=== PATIENT | male | born 1965 | race Hispanic/Latino ===

== ENCOUNTER 2018-07-09 12:58 | Inpatient (IN) | payer BC, SELFPAY ==
[~2018-07-09 12:58] MED LIST: ISOVUE-370 76%-LOCM 1 ML ONE
[2018-07-09] MEDS ORDERED: Lidocaine 2% PF 100 mg/5 ml Syringe ONE (13:02)
[2018-07-09] MEDS ORDERED: Adacel (T-DAP) 0.5 ML VIAL ONE (13:06)
[2018-07-09] MEDS ORDERED: manNITOL 20% 500 ML ONE (13:10)
[2018-07-09] MEDS ORDERED: Midazolam HCl 5 mg/ml Vial ONE (13:13)
[2018-07-09] MEDS ORDERED: CEFAZOLIN/Water 2 GM/20 ML SYRINGE ONE (13:18)
[2018-07-09 13:22] LABS: Lavender RECEIVED; Red RECEIVED
[2018-07-09 13:23] LABS: #Basophils 0.1 thou/uL (0.0-0.2); #Eosinphils 0.1 thou/uL (0.0-0.7); #Lymphocytes 2.4 thou/uL (1.20-3.40); #Monocytes 0.5 thou/uL (0.11-0.59); #Neutrophils 6.5 thou/uL (1.40-6.50); %Basophils 0.7 % (0.0-1.0); %Eosinophils 0.6 % (0.0-10.0); %Lymphocytes 25.2 % (21.0-51.0); %Monocytes 5.3 % (0.0-10.0); %Neutrophils 68.3 % (42.0-75.0); Hemoglobin 16.1 g/dL (14.0-18.0); INR-International Normal Ratio 1.1; Mean Corpuscular HGB CONC 35.3 g/dL (32.0-36.0); Mean Corpuscular Hemoglobin 30.5 pg (27.0-31.0); Mean Corpuscular Volume 86.3 fL (78.0-98.0); Mean Platelet Volume 8.5 fL (7.4-10.4); PTT 33.7 SEC (22.9-36.1); Platelet Count 106 thou/uL (130-400); Prothrombin Time 14.5 SEC (12.0-14.7); Red Blood Cell (RBC) Count 5.28 mill/uL (4.70-6.10); White Blood Cell (WBC) Count 9.5 thou/uL (4.8-10.8)
[2018-07-09 13:32] LABS: ALT (SGPT) 49 U/L (8-55); AST (SGOT) 41 U/L (5-34); Albumin 4.5 g/dL (3.5-5.0); Alkaline Phosphatase 60 U/L (40-150); Anion Gap 21 mmol/L (10-20); BUN (Urea Nitrogen) 12 mg/dL (8.4-25.7); Calc. Creatinine Clearance 0 mL/min (70-130); Carbon Dioxide 18 mmol/L (22-29); Chloride 103 mmol/L (98-107); Estimated GFR-MDRD 75; Globulin 3.3 g/dL (2.4-3.5); Glucose 294 mg/dL (70-105); Protein, Total 7.8 g/dL (6.0-8.3); Sodium 138 mmol/L (136-145)
[2018-07-09 13:34] LABS: PLT Morphology Comment Appears Decreased; RBC Morphology Normal
[2018-07-09] MEDS ORDERED: Atropine Sulfate 1 mg/10 ml Syringe ONE (13:42)
[2018-07-09] MEDS ORDERED: Hydrocortisone Sod Succ/PF 100 mg/2 ml Vial ONE (13:44)
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
[2018-07-09 14:18] LABS: Magnesium 2.3 mg/dL (1.6-2.6); Phosphorus 2.7 mg/dL (2.3-4.7)
[2018-07-09 14:23] LABS: Bilirubin Negative (Negative); Blood, Urine Moderate (Negative); Clarity CLEAR (Clear); Glucose, Urine (Dipstick) >=1000 mg/dL (Negative); Leukocyte Negative (Negative); Nitrite Negative (Negative); Protein, Urine (Dipstick) 300 mg/dL (Neg-Trace); Specific Gravity, Urine 1.028 (1.002-1.036); Urobilinogen 0.2 mg/dL (0.2-1.0); pH, Urine 6.5 (5.0-9.0)
[2018-07-09 14:24] LABS: Bacteria/HPF None Seen HPF (None Seen); Hyaline Casts/LPF 0-3 HYALINE CAST LPF (0-3 Hyaline); Pathc Cast-AUWi Flag 0.72 (0-2.49); Squamous Epithelial 0-3 HPF (0-3); WBC/HPF 0-3 HPF (0-3)
[2018-07-09 14:31] LABS: Actual Bicarbonate (HCO3a) 21.9 mEq/L (22-28); Base Excess (BEa) -6.6 mEq/L (-2.0 to +3.0); CO2 Tension 56.1 mmHg (35.0-45.0); pH, Arterial 7.21 (7.35-7.45)
[2018-07-09 14:32] LABS: Analyzer IN Cardio ER; Calcium, Ionized 1.1 mmol/L (1.12-1.30); Carboxyhemoglobin (COHb) 0.6 gm% (0.0-3.0); Hemoglobin (Hb) 14.2 g/dL (14.0-18.0); Potassium - ABG Lab 3.8 mmol/L (3.70-5.30)
[2018-07-09 14:33] LABS: ALV-art Gradient 591.875 (0-20); Puncture Site RR
--- NOTE | 2018-07-09 14:39 | RAD ---
PORTABLE CHEST 1 VIEW: Date: 07/09/18 Time: 1407 hours HISTORY: Respiratory failure. FINDINGS/IMPRESSION: Comparison made with exam of 12/27/13. There is an endotracheal tube with tip just above the level of the clavicular heads. A nasogastric tu be can be traced into the stomach. There is a left subclavian central line with tip in the projection of the SVC. The heart size is borderline. No lobar consolidation, pneumothoraces, or large effusions are seen. There is no evidence of guillermo pulmonary edema. POS: [facility]
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
[2018-07-09] MEDS ORDERED: Sodium Chloride 3% 500 ML IVPB SCH (14:45)
[2018-07-09] MEDS ORDERED: Dextrose 50% Abboject 50 ML SYRINGE SLOW IVP PRN ×2 (15:28→19:49)
[2018-07-09] MEDS ORDERED: Ondansetron HCl/PF 4 MG/2 ML Vial IVP PRN (15:28)
[2018-07-09] MEDS ORDERED: Dextrose 5% in Water 1,000 ML IV PRN ×2 (15:28→19:49)
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
[2018-07-09 15:41] LABS: #Basophils 0.2 thou/uL (0.0-0.2); #Lymphocytes 0.4 thou/uL (1.20-3.40); #Monocytes 0.6 thou/uL (0.11-0.59); %Basophils 1.8 % (0.0-1.0); %Eosinophils 0.2 % (0.0-10.0); %Lymphocytes 3.4 % (21.0-51.0); %Monocytes 5.2 % (0.0-10.0); %Neutrophils 89.4 % (42.0-75.0); Mean Corpuscular HGB CONC 34.9 g/dL (32.0-36.0); Mean Corpuscular Hemoglobin 30.5 pg (27.0-31.0); Mean Corpuscular Volume 87.5 fL (78.0-98.0); Platelet Count 115 thou/uL (130-400); Red Blood Cell (RBC) Count 4.57 mill/uL (4.70-6.10); White Blood Cell (WBC) Count 12.3 thou/uL (4.8-10.8)
[2018-07-09 15:48] LABS: INR-International Normal Ratio 1.8; Prothrombin Time 21.3 SEC (12.0-14.7)
[2018-07-09 15:49] LABS: PTT 53.3 SEC (22.9-36.1)
[2018-07-09 15:55] LABS: Fibrinogen 60 mg/dL (253-463)
[2018-07-09 16:29] LABS: Anion Gap 17 mmol/L (10-20); BUN (Urea Nitrogen) 14 mg/dL (8.4-25.7); Calc. Creatinine Clearance 0 mL/min (70-130); Carbon Dioxide 18 mmol/L (22-29); Chloride 102 mmol/L (98-107); Estimated GFR-MDRD 58; Glucose 378 mg/dL (70-105); Potassium 4.4 mmol/L (3.5-5.1); Sodium 133 mmol/L (136-145)
[2018-07-09] MEDS ORDERED: SODIUM CHLORIDE 0.9% IVPB SCH ×2 (16:45→17:00)
[2018-07-09] MEDS ORDERED: METHYLPREDNISOLONE SOD SUCC IVPB SCH (16:45)
[2018-07-09] MEDS ORDERED: LEVOTHYROXINE SODIUM IVPB SCH (17:00)
[2018-07-09] MEDS ORDERED: NPH, Human Insulin Isophane 300 UNIT/3 ML VIAL FS SCH (17:00)
[2018-07-09] MEDS ORDERED: ADMIXTURE FEE IVPB SCH (17:00)
[2018-07-09] MEDS ORDERED: Levothyroxine 100 MCG SDV SLOW IVP SCH (17:00)
[2018-07-09 17:04] VITALS: BMI 32.2
[2018-07-09] MEDS: Sodium Chloride 0.9% 1,000 ML IV SCH (17:25)
[2018-07-09] MEDS ORDERED: Insulin Regular 300 UNITS/3 ML VIAL IVP SCH (17:30)
[2018-07-09] MEDS ORDERED: EPINEPHrine 1 MG/10 ML Abboject SYRINGE ONE (17:44)
[2018-07-09 18:20] LABS: Lactic Acid 2.2 mmol/L (0.5-2.2)
[2018-07-09] MEDS ORDERED: HumaLOG 300 UNITS/3 ML VIAL SC PRN (19:49)
[2018-07-09] MEDS ORDERED: Norepinephrine 8 MG/0.9% NS 250 ML IVPB SCH (20:00)
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
[2018-07-09] MEDS: CEFAZOLIN 1 GM in Sodium Chloride 0.9% 100 ML IVPB SCH (21:31)
[2018-07-09] MEDS: Famotidine/PF 20 mg/2ml Vial SLOW IVP SCH (21:31)
[2018-07-09] MEDS: Acetaminophen 1,000 MG in Premix Bag 1 BAG IVPB SCH (21:41)
[2018-07-09 22:56] LABS: Sodium 150 mmol/L (136-145)
[2018-07-09 23:02] LABS: Osmolality, Serum 340 mOsm/kg (280-295)
[2018-07-10] MEDS: Insulin Regular 300 UNITS/3 ML VIAL SC PRN ×2 (00:02→03:56)
[2018-07-10] MEDS: Sodium Chloride 0.9% 1,000 ML IV SCH (02:01)
[2018-07-10 04:33] LABS: #Lymphocytes 0.9 thou/uL (1.20-3.40); #Monocytes 0.2 thou/uL (0.11-0.59); #Neutrophils 12.3 thou/uL (1.40-6.50); %Eosinophils 0.1 % (0.0-10.0); %Lymphocytes 6.8 % (21.0-51.0); %Monocytes 1.5 % (0.0-10.0); %Neutrophils 91.6 % (42.0-75.0); Hemoglobin 13.9 g/dL (14.0-18.0); Mean Corpuscular HGB CONC 34.5 g/dL (32.0-36.0); Mean Corpuscular Hemoglobin 30.2 pg (27.0-31.0); Mean Corpuscular Volume 87.6 fL (78.0-98.0); Mean Platelet Volume 8.6 fL (7.4-10.4); Platelet Count 110 thou/uL (130-400); RBC Distribution Width 13.6 % (11.5-14.5); Red Blood Cell (RBC) Count 4.59 mill/uL (4.70-6.10); White Blood Cell (WBC) Count 13.4 thou/uL (4.8-10.8)
[2018-07-10 04:46] LABS: Anion Gap 20 mmol/L (10-20); BUN (Urea Nitrogen) 23 mg/dL (8.4-25.7); Calc. Creatinine Clearance 76 mL/min (70-130); Calcium 9.2 mg/dL (7.8-10.44); Carbon Dioxide 15 mmol/L (22-29); Chloride 121 mmol/L (98-107); Estimated GFR-MDRD 42; Glucose 439 mg/dL (70-105); Magnesium 2.8 mg/dL (1.6-2.6); Phosphorus 1.7 mg/dL (2.3-4.7); Sodium 152 mmol/L (136-145)
[2018-07-10] MEDS: Acetaminophen 1,000 MG in Premix Bag 1 BAG IVPB SCH (05:54)
[2018-07-10] MEDS: CEFAZOLIN 1 GM in Sodium Chloride 0.9% 100 ML IVPB SCH (05:54)
[2018-07-10] MEDS ORDERED: Potassium Phosphate 30 MMOL in Sodium Chloride 0.9% 500 ML IVPB SCH (06:00)
[2018-07-10 08:20] VITALS: TEMP 96.1
[2018-07-10] MEDS ORDERED: Sodium Chloride 0.45% 1,000 ML IV SCH (08:45)
[2018-07-10 09:00] LABS: CO2 Tension 27.6 mmHg (35.0-45.0); pH, Arterial 7.31 (7.35-7.45)
[2018-07-10 09:01] LABS: Actual Bicarbonate (HCO3a) 13.7 mEq/L (22-28); Base Excess (BEa) -10.9 mEq/L (-2.0 to +3.0); Carboxyhemoglobin (COHb) 0.4 gm% (0.0-3.0); Hemoglobin (Hb) 13.6 g/dL (14.0-18.0); O2 Tension (PaO2) 506.9 mmHg (80.0-100.0)
[2018-07-10 09:02] LABS: Calcium, Ionized 1.3 mmol/L (1.12-1.30); Puncture Site RRA
[2018-07-10] MEDS: Famotidine/PF 20 mg/2ml Vial SLOW IVP SCH (09:18)
[2018-07-10 09:56] LABS: ALT (SGPT) 49 U/L (8-55); AST (SGOT) 53 U/L (5-34); Albumin 3.8 g/dL (3.5-5.0); Alkaline Phosphatase 48 U/L (40-150); Anion Gap 17 mmol/L (10-20); BUN (Urea Nitrogen) 26 mg/dL (8.4-25.7); Bilirubin, Total 0.7 mg/dL (0.2-1.2); Calc. Creatinine Clearance 81 mL/min (70-130); Calcium 9.1 mg/dL (7.8-10.44); Carbon Dioxide 15 mmol/L (22-29); Chloride 125 mmol/L (98-107); Estimated GFR-MDRD 45; Globulin 2.8 g/dL (2.4-3.5); Glucose 377 mg/dL (70-105); Potassium 3.2 mmol/L (3.5-5.1); Protein, Total 6.6 g/dL (6.0-8.3); Sodium 154 mmol/L (136-145)
--- NOTE | 2018-07-10 10:27 | RAD ---
SEMIUPRIGHT PORTABLE CHEST: HISTORY: A 53-year-old male with a history of respiratory insufficiency. FINDINGS: Tracheostomy tube, NG tube, and left subclavian catheters are in place. Patchy increased linear saúl ings are noted in the infrahilar regions bilaterally, probably representing some subsegmental atelect asis. The upper lung zones appear clear. Heart size is within normal limits. IMPRESSION: Bibasilar, mostly linear and parenchymal changes, evidence for subsegmental atelectasis. No signific ant other new process. Continued short-term followup for clearing or stability. POS: [facility]
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
[2018-07-10 15:47] VITALS: BP 129/72
[2018-07-10 17:48] LABS: Actual Bicarbonate (HCO3a) 18.6 mEq/L (22-28); Base Excess (BEa) -4.3 mEq/L (-2.0 to +3.0); CO2 Tension 28.5 mmHg (35.0-45.0); O2 Tension (PaO2) 473.1 mmHg (80.0-100.0); pH, Arterial 7.43 (7.35-7.45)
[2018-07-10 17:49] LABS: Carboxyhemoglobin (COHb) 0.3 gm% (0.0-3.0)
[2018-07-10 17:50] LABS: ALV-art Gradient 204.275 (0-20); Calcium, Ionized 1.2 mmol/L (1.12-1.30); Potassium - ABG Lab 3.9 mmol/L (3.70-5.30); Puncture Site LBRACH
[2018-07-10] MEDS ORDERED: CEFAZOLIN 1 GM in Sodium Chloride 0.9% 100 ML IVPB SCH (22:00)
== END 2018-07-10 14:00 | disposition expired | DRG 4 ==
LOC: ERS 12:58 → EDBD 12:58 → CCU 15:07
PROVIDERS: ADMIT Surgery; ATTEND Surgery
PROC: 0B113F4 Bypass Trachea to Cutaneous with Tracheostomy Device, Percutaneous Approach (ICD-10-PCS; principal; 2018-07-09)
PROC: 5A1935Z Respiratory Ventilation, Less than 24 Consecutive Hours (ICD-10-PCS; 2018-07-09)
PROC: 02HV33Z Insertion of Infusion Device into Superior Vena Cava, Percutaneous Approach (ICD-10-PCS; 2018-07-09)
PROC: 5A2204Z Restoration of Cardiac Rhythm, Single (ICD-10-PCS; 2018-07-09)
PROC: 30233K1 Transfusion of Nonautologous Frozen Plasma into Peripheral Vein, Percutaneous Approach (ICD-10-PCS; 2018-07-09)
PROC: 30233R1 Transfusion of Nonautologous Platelets into Peripheral Vein, Percutaneous Approach (ICD-10-PCS; 2018-07-09)
PROC: 30233N1 Transfusion of Nonautologous Red Blood Cells into Peripheral Vein, Percutaneous Approach (ICD-10-PCS; 2018-07-09)
PROC: 30233M1 Transfusion of Nonautologous Plasma Cryoprecipitate into Peripheral Vein, Percutaneous Approach (ICD-10-PCS; 2018-07-09)
DX: G93.5 Compression of brain; J96.00 Acute respiratory failure, unspecified whether with hypoxia or hypercapnia; D65 Disseminated intravascular coagulation [defibrination syndrome]; I47.2 Ventricular tachycardia; E23.2 Diabetes insipidus; E87.2 Acidosis; E66.01 Morbid (severe) obesity due to excess calories; Z68.32 Body mass index [BMI] 32.0-32.9, adult; E83.51 Hypocalcemia
CPT/HCPCS: 31500; 36416; 36430; 70450; 70496; 71045; 72125; 78610; 80048; 80053; 80307; 81003; 81015; 82150; 82805; 83605; 83690; 83735; 83930; 84100; 85025; 85384; 85610; 85730; 86850; 86900; 86901; 90715; 94002; 94003; 94640; A9521; G0390; J0131; J0171; J0461; J0690; J1720; J1815; J2001; J2250; J2597; J2930; J7050; J7131; J7620; J7799; P9012; P9016; P9035; P9048; S0028

== ENCOUNTER 2018-07-10 13:09 | Day surgery (SDC) | payer OTHER ==
[2018-07-10] MEDS ORDERED: ADMIXTURE FEE IVPB SCH (15:00)
[2018-07-10] MEDS ORDERED: SODIUM CHLORIDE 0.9% IVPB SCH (15:00)
[2018-07-10] MEDS ORDERED: Norepinephrine 8 MG/0.9% NS 250 ML IVPB SCH (15:00)
[2018-07-10] MEDS ORDERED: LEVOTHYROXINE SODIUM IVPB SCH (15:00)
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
[2018-07-10 16:44] LABS: #Lymphocytes 1.3 thou/uL (1.20-3.40); #Monocytes 1.1 thou/uL (0.11-0.59); %Basophils 0.1 % (0.0-1.0); %Lymphocytes 7.2 % (21.0-51.0); %Monocytes 6.1 % (0.0-10.0); %Neutrophils 86.5 % (42.0-75.0); Hemoglobin 13.1 g/dL (14.0-18.0); Mean Corpuscular HGB CONC 34.8 g/dL (32.0-36.0); Mean Corpuscular Hemoglobin 30.7 pg (27.0-31.0); Mean Corpuscular Volume 88.3 fL (78.0-98.0); Mean Platelet Volume 8.3 fL (7.4-10.4); Platelet Count 110 thou/uL (130-400); RBC Distribution Width 13.6 % (11.5-14.5); Red Blood Cell (RBC) Count 4.28 mill/uL (4.70-6.10); White Blood Cell (WBC) Count 17.4 thou/uL (4.8-10.8)
[2018-07-10 16:47] LABS: INR-International Normal Ratio 1.2; PTT 28.8 SEC (22.9-36.1); Prothrombin Time 15.6 SEC (12.0-14.7)
[2018-07-10] MEDS: Sodium Chloride 0.45% 1,000 ML IV SCH (16:50)
[2018-07-10] MEDS: Phytonadione 10 MG/ML AMP SLOW IVP SCH ×2 (16:51→19:55)
[2018-07-10] MEDS: Insulin Regular 100 units/100 ml in NS IVPB SCH (16:51)
[2018-07-10 16:55] LABS: Bilirubin Negative (Negative); Blood, Urine Moderate (Negative); Clarity CLEAR (Clear); Glucose, Urine (Dipstick) 500 mg/dL (Negative); Leukocyte Negative (Negative); Nitrite Negative (Negative); Protein, Urine (Dipstick) Trace mg/dL (Neg-Trace); Specific Gravity, Urine 1.026 (1.002-1.036); Urobilinogen 0.2 mg/dL (0.2-1.0); pH, Urine 6.5 (5.0-9.0)
[2018-07-10 16:58] LABS: Bacteria/HPF None Seen HPF (None Seen); Hyaline Casts/LPF 0-3 HYALINE CAST LPF (0-3 Hyaline); Pathc Cast-AUWi Flag 0.43 (0-2.49); RBC/HPF 0-3 HPF (0-3); Squamous Epithelial 0-3 HPF (0-3); WBC/HPF 0-3 HPF (0-3)
--- NOTE | 2018-07-10 17:02 | RAD ---
CHEST ONE VIEW: History: Respiratory insufficiency. Comparison: 07-10-18 at 8:52 a.m. FINDINGS: There is evidence of an endotracheal and nasogastric tube. There is opacification of the right lower lobe. There is no pneumothorax or osseous abnormality. IMPRESSION: No significant interval change. POS: [facility]
[2018-07-10 17:39] LABS: ALT (SGPT) 45 U/L (8-55); AST (SGOT) 54 U/L (5-34); Albumin 3.7 g/dL (3.5-5.0); Alcohol Less than 10 mg/dL (Less than 10); Alkaline Phosphatase 42 U/L (40-150); Anion Gap 11 mmol/L (10-20); BUN (Urea Nitrogen) 23 mg/dL (8.4-25.7); Bilirubin, Direct 0.3 mg/dL (0.1-0.3); Bilirubin, Total 0.8 mg/dL (0.2-1.2); Calc. Creatinine Clearance 0 mL/min (70-130); Calcium 8.8 mg/dL (7.8-10.44); Carbon Dioxide 21 mmol/L (22-29); Chloride 127 mmol/L (98-107); Estimated GFR-MDRD 65; Gamma GT (GGT) 53 U/L (12-64); Globulin 2.4 g/dL (2.4-3.5); Glucose 120 mg/dL (70-105); LDH 361 U/L (125-220); Lipase 16 U/L (8-78); Magnesium 2.7 mg/dL (1.6-2.6); Phosphorus 1.3 mg/dL (2.3-4.7); Potassium 3.4 mmol/L (3.5-5.1); Protein, Total 6.1 g/dL (6.0-8.3); Sodium 156 mmol/L (136-145)
[2018-07-10 18:25] LABS: Hemoglobin A1c 9.4 % (4.0-6.0)
[2018-07-10] MEDS ORDERED: Albumin 5% 500 ML ONE (19:19)
[2018-07-10] MEDS ORDERED: Phytonadione 10 MG/ML AMP SLOW IVP SCH (20:00)
[2018-07-10] MEDS: CEFAZOLIN 1 GM in Sodium Chloride 0.9% 100 ML IVPB SCH (21:44)
[2018-07-10 22:53] LABS: #Monocytes 0.8 thou/uL (0.11-0.59); %Basophils 0.1 % (0.0-1.0); %Lymphocytes 7.5 % (21.0-51.0); %Monocytes 5.6 % (0.0-10.0); %Neutrophils 86.8 % (42.0-75.0); Hemoglobin 10.9 g/dL (14.0-18.0); Mean Corpuscular HGB CONC 35.2 g/dL (32.0-36.0); Mean Corpuscular Hemoglobin 31.1 pg (27.0-31.0); Mean Corpuscular Volume 88.6 fL (78.0-98.0); Mean Platelet Volume 8.1 fL (7.4-10.4); Platelet Count 72 thou/uL (130-400); RBC Distribution Width 13.5 % (11.5-14.5); Red Blood Cell (RBC) Count 3.51 mill/uL (4.70-6.10); White Blood Cell (WBC) Count 13.8 thou/uL (4.8-10.8)
[2018-07-10 22:58] LABS: INR-International Normal Ratio 1.3; PTT 28.7 SEC (22.9-36.1); Prothrombin Time 16.3 SEC (12.0-14.7)
[2018-07-10] MEDS ORDERED: Potassium Phosphate 45 MMOL in Sodium Chloride 0.9% 250 ML 250 ML IVPB SCH (23:00)
[2018-07-10 23:10] LABS: Actual Bicarbonate (HCO3a) 20.9 mEq/L (22-28); Base Excess (BEa) -2.3 mEq/L (-2.0 to +3.0); Carboxyhemoglobin (COHb) 0.3 gm% (0.0-3.0); O2 Tension (PaO2) 388.2 mmHg (80.0-100.0); pH, Arterial 7.45 (7.35-7.45)
[2018-07-10 23:11] LABS: Analyzer IN Cardio ER; Calcium, Ionized 1.2 mmol/L (1.12-1.30); Potassium - ABG Lab 3.6 mmol/L (3.70-5.30); Puncture Site LINE
[2018-07-10 23:16] LABS: ALT (SGPT) 35 U/L (8-55); AST (SGOT) 47 U/L (5-34); Albumin 3.7 g/dL (3.5-5.0); Alkaline Phosphatase 38 U/L (40-150); Anion Gap 9 mmol/L (10-20); BUN (Urea Nitrogen) 20 mg/dL (8.4-25.7); Bilirubin, Total 0.7 mg/dL (0.2-1.2); Calc. Creatinine Clearance 0 mL/min (70-130); Calcium 8.3 mg/dL (7.8-10.44); Carbon Dioxide 21 mmol/L (22-29); Chloride 132 mmol/L (98-107); Estimated GFR-MDRD 79; Globulin 2.2 g/dL (2.4-3.5); Glucose 122 mg/dL (70-105); Magnesium 2.6 mg/dL (1.6-2.6); Phosphorus 1.6 mg/dL (2.3-4.7); Potassium 3.2 mmol/L (3.5-5.1); Protein, Total 5.9 g/dL (6.0-8.3); Sodium 159 mmol/L (136-145)
[2018-07-10] MEDS ORDERED: Vasopressin 20 UNIT in Sodium Chloride 0.9% 250 ML 250 ML IV SCH (23:30)
[2018-07-10] MEDS ORDERED: Albumin 25% 25 GM/100 ML BOT IVPB SCH (23:30)
[2018-07-11] MEDS: Levothyroxine Sodium 400 MCG in Sodium Chloride 0.9% 100 ML IVPB SCH ×3 (00:34→17:51)
[2018-07-11] MEDS: Sodium Chloride 0.45% 1,000 ML IV SCH ×2 (01:41→12:41)
[2018-07-11] MEDS: Insulin Regular 100 units/100 ml in NS IVPB SCH (03:09)
[2018-07-11 04:08] LABS: Actual Bicarbonate (HCO3a) 21.7 mEq/L (22-28); Base Excess (BEa) -1.7 mEq/L (-2.0 to +3.0); CO2 Tension 32.2 mmHg (35.0-45.0); Carboxyhemoglobin (COHb) 0.3 gm% (0.0-3.0); Hemoglobin (Hb) 10.8 g/dL (14.0-18.0); O2 Tension (PaO2) 491.3 mmHg (80.0-100.0); Potassium - ABG Lab 3.8 mmol/L (3.70-5.30); pH, Arterial 7.45 (7.35-7.45)
[2018-07-11 04:09] LABS: Calcium, Ionized 1.2 mmol/L (1.12-1.30); Puncture Site LINE
[2018-07-11 04:45] LABS: Bilirubin Negative (Negative); Blood, Urine Large (Negative); Clarity CLEAR (Clear); Glucose, Urine (Dipstick) >=1000 mg/dL (Negative); Leukocyte Negative (Negative); Nitrite Negative (Negative); Protein, Urine (Dipstick) 100 mg/dL (Neg-Trace); Specific Gravity, Urine 1.033 (1.002-1.036)
[2018-07-11 04:48] LABS: Bacteria/HPF None Seen HPF (None Seen); Hyaline Casts/LPF 0-3 HYALINE CAST LPF (0-3 Hyaline); Pathc Cast-AUWi Flag 0.14 (0-2.49); RBC/HPF 0-3 HPF (0-3); Squamous Epithelial 0-3 HPF (0-3); WBC/HPF 0-3 HPF (0-3)
[2018-07-11] MEDS: CEFAZOLIN 1 GM in Sodium Chloride 0.9% 100 ML IVPB SCH ×2 (05:20→14:07)
[2018-07-11 05:27] LABS: Oval Fat Bodies/HPF None Seen HPF (None Seen); Renal Epithelial None Seen HPF (0-3); Sperm/HPF None Seen HPF (None Seen); Transitional Epithelial NONE SEEN HPF (0-3); Trichomonas/HPF None Seen HPF (None Seen); Yeast-All Forms None Seen HPF (None Seen)
[2018-07-11 06:00] LABS: INR-International Normal Ratio 1.2; PTT 26.8 SEC (22.9-36.1); Prothrombin Time 15.5 SEC (12.0-14.7)
[2018-07-11 06:09] LABS: #Lymphocytes 0.9 thou/uL (1.20-3.40); #Monocytes 0.5 thou/uL (0.11-0.59); %Basophils 0.3 % (0.0-1.0); %Lymphocytes 7.5 % (21.0-51.0); %Monocytes 4.1 % (0.0-10.0); %Neutrophils 88.1 % (42.0-75.0); Hemoglobin 10.7 g/dL (14.0-18.0); Mean Corpuscular HGB CONC 34.2 g/dL (32.0-36.0); Mean Corpuscular Hemoglobin 30.3 pg (27.0-31.0); Mean Corpuscular Volume 88.5 fL (78.0-98.0); Platelet Count 68 thou/uL (130-400); RBC Distribution Width 13.7 % (11.5-14.5); Red Blood Cell (RBC) Count 3.54 mill/uL (4.70-6.10); White Blood Cell (WBC) Count 11.4 thou/uL (4.8-10.8)
[2018-07-11 06:17] LABS: ALT (SGPT) 33 U/L (8-55); AST (SGOT) 52 U/L (5-34); Albumin 4.5 g/dL (3.5-5.0); Alkaline Phosphatase 36 U/L (40-150); Anion Gap 14 mmol/L (10-20); BUN (Urea Nitrogen) 21 mg/dL (8.4-25.7); Bilirubin, Total 0.9 mg/dL (0.2-1.2); Calc. Creatinine Clearance 0 mL/min (70-130); Calcium 9.1 mg/dL (7.8-10.44); Carbon Dioxide 22 mmol/L (22-29); Chloride 129 mmol/L (98-107); Estimated GFR-MDRD 83; Globulin 2.2 g/dL (2.4-3.5); Glucose 142 mg/dL (70-105); Magnesium 2.8 mg/dL (1.6-2.6); Phosphorus 3.1 mg/dL (2.3-4.7); Potassium 3.6 mmol/L (3.5-5.1); Protein, Total 6.7 g/dL (6.0-8.3); Sodium 161 mmol/L (136-145)
[2018-07-11] MEDS ORDERED: Potassium Chloride 40 MEQ in Premix Bag 1 BAG IVPB SCH ×2 (06:30→15:45)
--- NOTE | 2018-07-11 09:11 | RAD ---
CHEST ONE VIEW 07/10/18 HISTORY: Intubated. COMPARISON: Chest radiograph same day. FINDINGS: Lungs are hypoinflated. Vascular crowding. No focal air space consolidation, pneumothorax or effusion . IMPRESSION: 1. No significant change. 2. Central line tip near the azygos vein. POS: [facility]
--- NOTE | 2018-07-11 09:12 | ULT ---
ULTRASOUND GUIDED LIVER BIOPSY 07/10/18 HISTORY: Organ donation. COMPARISON: CT same day. FINDINGS: The examination/biopsy was performed in the patient's suite. The examination was done patient transplant. The identify was confirmed with the patient's wrist band and the nurse and the [facility] organ donation team. The patient's upper abdomen was prepped and draped in normal sterile fashion. 3 mL of lidocaine was i nstilled superficial and deep soft tissues. Small dermatomy was made. Introducer was placed to the li pallavi. A total of two 22 mm 18 gauge cores were obtained. There is no significant hematoma. IMPRESSION: Technically successful ultrasound guided biopsy for liver transplantation. POS: [facility]
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
[2018-07-11 09:47] LABS: Anion Gap 13 mmol/L (10-20); BUN (Urea Nitrogen) 21 mg/dL (8.4-25.7); Calc. Creatinine Clearance 0 mL/min (70-130); Calcium 8.9 mg/dL (7.8-10.44); Carbon Dioxide 22 mmol/L (22-29); Estimated GFR-MDRD Greater than 90; Glucose 148 mg/dL (70-105); Potassium 3.6 mmol/L (3.5-5.1); Sodium 159 mmol/L (136-145)
[2018-07-11 10:09] LABS: Chloride 128 mmol/L (98-107)
[2018-07-11 12:47] LABS: #Lymphocytes 1.1 thou/uL (1.20-3.40); #Monocytes 0.5 thou/uL (0.11-0.59); #Neutrophils 9.7 thou/uL (1.40-6.50); %Lymphocytes 9.4 % (21.0-51.0); %Monocytes 4.7 % (0.0-10.0); %Neutrophils 85.8 % (42.0-75.0); Hemoglobin 10.4 g/dL (14.0-18.0); Mean Corpuscular HGB CONC 33.8 g/dL (32.0-36.0); Mean Corpuscular Volume 88.8 fL (78.0-98.0); Mean Platelet Volume 8.8 fL (7.4-10.4); Platelet Count 57 thou/uL (130-400); RBC Distribution Width 13.8 % (11.5-14.5); Red Blood Cell (RBC) Count 3.48 mill/uL (4.70-6.10); White Blood Cell (WBC) Count 11.3 thou/uL (4.8-10.8)
[2018-07-11 12:51] LABS: INR-International Normal Ratio 1.2; PTT 26.6 SEC (22.9-36.1); Prothrombin Time 15.4 SEC (12.0-14.7)
[2018-07-11 13:14] LABS: ALT (SGPT) 32 U/L (8-55); AST (SGOT) 50 U/L (5-34); Albumin 4.3 g/dL (3.5-5.0); Alkaline Phosphatase 37 U/L (40-150); Anion Gap 11 mmol/L (10-20); BUN (Urea Nitrogen) 22 mg/dL (8.4-25.7); Bilirubin, Total 0.8 mg/dL (0.2-1.2); Calc. Creatinine Clearance 0 mL/min (70-130); Calcium 8.9 mg/dL (7.8-10.44); Carbon Dioxide 22 mmol/L (22-29); Chloride 128 mmol/L (98-107); Estimated GFR-MDRD Greater than 90; Globulin 2.2 g/dL (2.4-3.5); Glucose 150 mg/dL (70-105); Magnesium 2.7 mg/dL (1.6-2.6); Phosphorus 2.3 mg/dL (2.3-4.7); Potassium 3.6 mmol/L (3.5-5.1); Protein, Total 6.5 g/dL (6.0-8.3); Sodium 157 mmol/L (136-145)
--- NOTE | 2018-07-11 13:18 | RAD ---
CHEST 1 VIEW: Date: 07/11/18 HISTORY: Chest pain. COMPARISON: Radiograph same date. FINDINGS: Tracheostomy tube tip in good position. Central venous catheter tip superior SVC without complication . Enteric tube is poorly seen. Lungs are hypoinflated with vascular crowding. IMPRESSION: No significant change. POS: [facility]
[2018-07-11 14:10] LABS: Bilirubin Negative (Negative); Blood, Urine Small (Negative); Clarity TURBID (Clear); Glucose, Urine (Dipstick) >=1000 mg/dL (Negative); Leukocyte Negative (Negative); Nitrite Negative (Negative); Protein, Urine (Dipstick) 100 mg/dL (Neg-Trace); Specific Gravity, Urine 1.037 (1.002-1.036); pH, Urine 6.5 (5.0-9.0)
[2018-07-11 14:14] LABS: Bacteria/HPF None Seen HPF (None Seen); Hyaline Casts/LPF 0-3 HYALINE CAST LPF (0-3 Hyaline); Pathc Cast-AUWi Flag 0.43 (0-2.49); Squamous Epithelial 0-3 HPF (0-3); WBC/HPF 0-3 HPF (0-3)
[2018-07-11 14:35] LABS: Renal Epithelial None Seen HPF (0-3); Transitional Epithelial NONE SEEN HPF (0-3)
--- NOTE | 2018-07-11 15:19 | EKG ---
Test Reason : [employer] Blood Pressure : / mmHG Vent. Rate : 072 BPM Atrial Rate : 072 BPM P-R Int : 154 ms QRS Dur : 096 ms QT Int : 472 ms P-R-T Axes : 065 048 163 degrees QTc Int : 516 ms Normal sinus rhythm T wave abnormality, consider lateral ischemia Prolonged QT Abnormal ECG No previous ECGs available Confirmed by ALLISON AGUILERA MD ([id number]) on 07/11/2018 3:18:41 PM Referred By: ORGAN P Confirmed By:ALLISON AGUILERA MD
[2018-07-11 17:34] LABS: Actual Bicarbonate (HCO3a) 21.1 mEq/L (22-28); Base Excess (BEa) -2.6 mEq/L (-2.0 to +3.0); CO2 Tension 32.6 mmHg (35.0-45.0); Carboxyhemoglobin (COHb) 0.5 gm% (0.0-3.0); Hemoglobin (Hb) 10.9 g/dL (14.0-18.0); O2 Tension (PaO2) 100.7 mmHg (80.0-100.0); pH, Arterial 7.43 (7.35-7.45)
[2018-07-11 17:35] LABS: Calcium, Ionized 1.2 mmol/L (1.12-1.30); Potassium - ABG Lab 3.5 mmol/L (3.70-5.30); Puncture Site ALINE
[2018-07-11 17:36] VITALS: BP 155/74; TEMP 97.9
[2018-07-11 17:37] LABS: Actual Bicarbonate (HCO3a) 22.1 mEq/L (22-28); Base Excess (BEa) -1.7 mEq/L (-2.0 to +3.0); O2 Tension (PaO2) 80.9 mmHg (80.0-100.0); pH, Arterial 7.43 (7.35-7.45)
[2018-07-11 17:38] LABS: Carboxyhemoglobin (COHb) 0.2 gm% (0.0-3.0); Hemoglobin (Hb) 10.8 g/dL (14.0-18.0); Potassium - ABG Lab 3.6 mmol/L (3.70-5.30)
[2018-07-11 17:39] LABS: Calcium, Ionized 1.2 mmol/L (1.12-1.30); Puncture Site ALINE
[2018-07-11 17:42] LABS: Actual Bicarbonate (HCO3a) 19.4 mEq/L (22-28); CO2 Tension 30.1 mmHg (35.0-45.0); pH, Arterial 7.43 (7.35-7.45)
[2018-07-11 17:43] LABS: Base Excess (BEa) -4.1 mEq/L (-2.0 to +3.0); Calcium, Ionized 1.2 mmol/L (1.12-1.30); Carboxyhemoglobin (COHb) 0.3 gm% (0.0-3.0); Hemoglobin (Hb) 10.2 g/dL (14.0-18.0); Potassium - ABG Lab 4.3 mmol/L (3.70-5.30); Puncture Site ALINE
[2018-07-11 17:44] LABS: ALV-art Gradient 448.375 (0-20)
[2018-07-11] MEDS ORDERED: Piperacillin/Tazobactam 3.375 GM in Sodium Chloride 0.9% 100 ML IVPB SCH (18:00)
[2018-07-11] MEDS ORDERED: Vancomycin HCl 1 GM in Premix Bag 1 BAG IVPB SCH (18:00)
--- NOTE | 2018-07-15 13:40 | RAD ---
PORTABLE AP CHEST X-RAY 07/11/18 HISTORY: Organ donor patient. COMPARISON: 07/11/18. FINDINGS: Tracheostomy device, nasogastric tube, and left sided central venous catheter remain in place and unc hanged in position. There is subsegmental atelectasis present at each lung base. The cardiac silhouet te is magnified by projection, but does appear enlarged. Pulmonary vasculature is within normal limit s. The chest is overall unchanged from prior exam. IMPRESSION: Overall stable chest aside from greater degree of subsegmental atelectasis at the right lung base.
== END 2018-07-11 18:43 | disposition short-term general hospital (02) ==
LOC: SDC/OP 13:09 → CCU 13:55 → SDC/OP 13:57
PROC: 0FB23ZX Excision of Left Lobe Liver, Percutaneous Approach, Diagnostic (ICD-10-PCS; principal; 2018-07-10)
DX: Z00.5 Encounter for examination of potential donor of organ and tissue (principal); K76.0 Fatty (change of) liver, not elsewhere classified
CPT/HCPCS: 36416; 36430; 47000; 71045; 71270; 74170; 76942; 80053; 80307; 81001; 82150; 82248; 82805; 82977; 83036; 83615; 83690; 83735; 84100; 85025; 85610; 85730; 86850; 86900; 86901; 87070; 88307; 93005; 93010; 93306; C1751; J0690; J1815; J2370; J2543; J3430; J3480; J7050; P9035; P9045; P9047